=== PATIENT | male | born 2000 | race Hispanic/Latino ===

== ENCOUNTER → 2024-06-24 | Outpatient (CLI) | payer OTHER, SELFPAY ==
[~2024-06-24] MED LIST: GADOTERATE MEGLUMINE 5 MMOL/10 ML VIAL IV ONE; IOHEXOL-350 50ML VIAL IV ONE
--- NOTE | 2024-06-24 10:50 | HMCIMG ---
MRI arthrogram left shoulder before and after arthrographic intra-articular injection of contrast Clinical Information: Idiopathic pain Comparison: None Technique: The examination is done with sagittal T1 and inversion recovery sequences, axial GRE sequence and coronal inversion recovery, proton density and T2 weighted [id number] sequences. After arthrographic injection of contrast material in the joint, FAST GEMS sequences were obtained in the axial, coronal and sagittal plane. Note: For description of arthrogram portion of study, including injection, please refer to report immediately after the report of the MRI. FINDINGS: The rotator cuff tendon appears unremarkable. Specifically, the supraspinatus, infraspinatus, teres minor, and subscapularis components are preserved. The acromioclavicular joint is preserved. The acromiohumeral space is preserved. The coracoclavicular and coracohumeral ligaments are intact. The biceps anchor is well seen, without significant tears. The biceps tendon runs in the bicipital groove without significant high signal intensity to suggest sprain. No displacement is seen from the groove itself. The structures of the labrum are intact. There is no SLAP tear. No significant abnormalities of the posterior, inferior, or inferior labral structures are seen either. No paralabral cysts are seen. The superior, middle, and inferior glenohumeral ligaments are intact. Glenohumeral joint cartilage is preserved. There is no evidence of chondromalacia. No loose intra-articular chondroid bodies are identified. The osseous structures of the shoulder joint to include the visualized segments of humeral head, neck, and shaft as well as the glenoid bone itself, the acromion, the coracoid, portions of the scapula and the distal portion of the clavicle are intact. The supraglenoid notch is clear without evidence of space occupying lesions or tumor. The structures of the joint capsule are preserved. The limited examination of the deltoid and the limited visualized portions of the pectoralis major are intact. After arthrographic injection of gadolinium contrast material, there is no extravasation. There is no evidence of a hip rotator cuff tendon tear and there is no evidence of a labral injury. IMPRESSION: NORMAL SHOULDER. NO ROTATOR CUFF TENDON TEAR SEEN. No labral injury. Shoulder ARTHROGRAM injection for subsequent MR arthrogram - left Lidocaine: 5 cc DISCUSSION: The risk, benefits, alternative and possible complications were explained to the patient in detail and written informed consent was obtained. The patient was placed supine on the table. The shoulder was prepped and draped in the usual sterile fashion after obtaining consent from the patient. 5 cc of 1% lidocaine without epinephrine was used for local anesthesia. Under fluoroscopic guidance, a 20 gauge spinal needle was introduced into the shoulder. 5 cc injection of Omnipaque was done to confirm intra-articular position of needle. A 20 cc mixture of 8 cc of Clariscan mixed with 12 cc sterile normal saline solution was prepared, and 14 cc were injected into the knee joint. The needle was removed and there were no immediate complications. A few fluoroscopic images were obtained in various projections, confirming adequate intra-articular injection. There were no complications and the patient tolerated the procedure well. The patient was taken to the MR suite. IMPRESSION: Status post uneventful intraarticular Isovue injection of the shoulder for MR arthrogram as described above.
== END | disposition home or self-care (01) ==
LOC: RAH 08:46
PROVIDERS: ATTEND Family Medicine
DX: M25.512 Pain in left shoulder (principal); S43.432S Superior glenoid labrum lesion of left shoulder, sequela; G89.29 Other chronic pain; M75.82 Other shoulder lesions, left shoulder; M75.42 Impingement syndrome of left shoulder
CPT/HCPCS: 73040; 73223; 23350; Q9967; A9575